=== PATIENT | male | born 1945 | race Caucasian/White ===

== ENCOUNTER → 2017-03-04 | Day surgery (SDC) | payer OTHER, BC ==
[2017-02-21 08:45] VITALS: Ht 172.7 cm; Wt 77.3 kg
[~2017-03-04] VITALS: Ht 172.7 cm; Wt 77.3 kg
[~2017-03-04] MED LIST: 500ML BSS 0.3ML EPI 1:1000PF IRRIG ONE; ACETAMINOPHEN 325 MG TAB PO PRN; AMLO-110 PO; AMVISC PLUS 0.8ML SYRINGE INT OCU ONE; ASPI81TA28 PO; ASTIN/15 NAE; ATOR-24 PO; ATROPINE SULFATE 0.1 MG/ML 5ML SYR IV PRN; ATROPINE SULFATE 1% OP SOLN 2 ML BTL ONE; AcetylCHOLine CHL OP SOL 1:100 2 ML BTL ONE; BRIMONIDINE TART 0.2% OP SOLN PER DROP CHARGE ONE; BSS FLUSH ONE; CLOP1TAB15 PO; EpHEDrine SULFATE INJ 50 MG/ML AMP IV PRN; EpINEphrine INJ 1MG/ML AMP 1 MG/ML AMP ONE; FAMO20TA11 PO; FLUT50SP45 NEB; HEALON 10MG/ML 0.85 ML SYR INSTIL ONE; LACTATED RINGER'S 1000ML 500 ML IV SCH; LIDOCAINE 4% OP SOLN DROP CHARGE ONE; LIDOCAINE 4% OP SOLN DROP CHARGE OPR SCH; LIDOCAINE HCL 1% MPF 2 ML VIAL ONE; LISI20TA3 PO; METO50TA7 PO; MIDAZOLAM HCL 1 MG/ML 2ML VIAL ONE; MOXIFLOXACIN OPH SOLN PER DROP CHARGE ONE; POVIDONE-IODINE OP SOLN 30 ML BTL ONE; PROPARACAINE 0.5% OP SOLN PER DROP CHARGE OPR SCH; SODI0.9S OPR; TETRACAINE HCL (OPHTH) 60 DROPS/4 ML BTL OP ONE; TOBRAMYCIN/DEXAMETHASONE OPH OINT PER APPLN CHARGE ONE; [UNRECOGNIZED DRUG - OTHER] OPL
[2017-03-04] MEDS: PHENYLEPHRINE HCL 2.5% OP SOLN PER DROP CHARGE OPR SCH ×2 (08:30→08:40)
[2017-03-04] MEDS: TROPICAMIDE 1% OP SOLN PER DROP CHARGE OPR SCH ×2 (08:32→08:41)
[2017-03-04] MEDS: CYCLOPENTOLATE HCL 1% OP SOLN PER DROP CHARGE OPR SCH ×2 (08:33→08:42)
[2017-03-04] MEDS: KETOROLAC 0.5% OP SOLN PER DROP CHARGE OPR SCH ×2 (08:34→08:44)
[2017-03-04] MEDS: MOXIFLOXACIN OPH SOLN PER DROP CHARGE OPR SCH ×2 (08:35→08:48)
--- NOTE | 2017-03-04 08:48 | History & Physical Bridge - [place] ---
H&P Re-Evaluation Bridge Note: I have examined the patient, reviewed the History & Physical and in the interval since the performance of the History & Physical I have noted the following changes of clinical significance: No changes noted
--- NOTE | 2017-03-04 10:44 | [facility] Post Operative Brief Note ---
Immediate Operative Summary Operative Date Mar 04, 2017. Pre-Operative Diagnosis Right Eye Endothelial Corneal Dystrophy; Cataract Right Eye Post-Operative Diagnosis Same Procedure(s) Performed Right Eye Descements Stripping Automated Endothelial Keratoplasty, Right Cataract Phacoemulsification With Intraocular Lens Implant Surgeon Dr. Adams Pulmonary Disease Specialist Surgeon(s) None Estimated Blood Loss 0 Findings cataract and fuchs dystrophy right eye Fluids (cc crystalloids) see anesthesia record Specimens A. Corneal Donor Rim Sent for Routine Culture and Gram Stain Drains none Anesthesia local with sedation Complication(s) None Disposition Recovery Room / PACU
--- NOTE | 2017-03-04 10:47 | Discharge Instructions-SurgCtr ---
Discharge Instructions Date of Service Mar 04, 2017. Visit Reason for Visit: Right Eye Endothelial Corneal Dystrophy; Cataract Discharge Discharge Diagnosis / Problem: fuchs dystrophy and cataract right eye Discharge Goals Goal(s): Improve function Activity Recommendations Activity Limitations: per Instructions/Follow-up section Lifting Limitations: no more than 5 pounds Anesthesia . Post Anesthesia Instructions: If you have had General Anesthesia or IV Sedation: * Do not drive today. * Resume driving when surgeon permits. * Do not make important decisions or sign legal documents today. * Call surgeon for: 1. Temperature elevations greater than 101 degrees F. 2. Uncontrollable pain. 3. Excessive bleeding. 4. Persistent nausea and vomiting. 5. Medication intolerance (nausea, vomiting or rash). * For nausea and vomiting use only clear liquids such as: tea, soda, bouillon until nausea subsides, then gradually increase diet as tolerated. * If you have any concerns or questions, call your surgeon's office. If physician is unavailable and it is an emergency, call 911 or go to the nearest emergency room. . Instructions / Follow-Up Instructions / Follow-Up ACTIVITY RECOMMENDATIONS: * Bedrest- Eyes to the david MEDICATIONS: Resume previous medications unless instructed otherwise by your surgeon. Eye drops (today and tomorrow): Gatifloxacin - one drop in operative eye every 2 hours while awake Prednisolone 1% - one drop in operative eye every 2 hours while awake Ilevro - one drop operative eye 1 times daily SPECIAL CARE INSTRUCTIONS: * If any problems or concerns, please call Dr. Adams's office at . * Keep plastic shield taped over eye to sleep at night. * Keep plastic shield taped over eye except to administer eye drops. * Keep plastic shield on until office visit the following day. FOLLOW UP VISIT: Follow-up with Dr. Adams in the [place] office as scheduled. If not already scheduled, please call the office at . Diet Recommendations Home Diet: resume previous diet Procedures Procedures Performed: Right Eye Descements Stripping Automated Endothelial Keratoplasty, Right Cataract Phacoemulsification With Intraocular Lens Implant Pending Studies Studies pending at discharge: no Medical Emergencies . Who to Call and When: Medical Emergencies: If at any time you feel your situation is an emergency, please call 911 immediately. . Non-Emergent Contact Non-Emergency issues call your: Numerical Control Router Operator . . "Provider Documentation" section prepared by Renan Adams. .
[2017-03-04 10:48] VITALS: TEMP 36.6
--- NOTE | 2017-03-04 11:06 | OPERATIVE REPORT ---
DATE OF OPERATION: 03/04/2017 PREOPERATIVE DIAGNOSIS: Cataract and Fuchs dystrophy, right eye. POSTOPERATIVE DIAGNOSIS: Same. PROCEDURE PERFORMED: Phacoemulsification cataract extraction with intraocular lens placement and Descemet stripping automated endothelial keratoplasty, right eye. COMPLICATIONS: None. ESTIMATED BLOOD LOSS: None. ANESTHESIA: Local with sedation. DESCRIPTION OF PROCEDURE: After informed consent was obtained in the holding area, attention was first turned to the donor cornea. It was trephinated with an 8.25 mm Lorraine trephine blade by myself. It was then covered in Optisol and set aside. The patient was then brought back to the operating room where cardiac monitoring leads and oxygen by nasal cannula was administered by anesthesia. Gentle IV sedation was given, and the patient's right eye was prepped and draped in usual standard fashion. A wire lid speculum was placed in the right eye and the operating microscope swung into position. Using 0.12 forceps and an MVR blade, a paracentesis port was made at the 11 o'clock position of the patient's right eye. 1% nonpreserved lidocaine was injected into the anterior chamber. A 2.0 mm keratome blade was then used to make a shelved clear cornea incision at the 9 o'clock position of the patient's right eye. The anterior chamber was filled with Healon and a curvilinear capsulorrhexis was performed with the cystotome and Utrata forceps. BSS and hydrodissection cannula was then used to hydrodissect the lens nucleus away from the capsular bag. The phacoemulsification handpiece was then used in a stop and chop fashion to remove the lens nucleus. Irrigation aspiration handpiece was then used to remove the residual cortical material. The eye was then filled with Healon and the main incision enlarged to 4 mm and a Bausch [employer] Lomb MX60 20.0 Diopter intraocular lens was injected into the capsular bag. The previously used Lorraine trephine was then inked and used to sergio the surface of the cornea. A reversed Sinskey hook was then used to score and strip Descemet's membrane from within the marked area. Descemet stripper removed to strip Descemet's from the eye. Stromal nail making machine tender was then used to roughen the stromal bed in the periphery. Irrigation aspiration handpiece was then used to remove the viscoelastic material from the eye. The donor cornea was then placed endothelial side up on the host cornea, a drop of Healon was placed on it. It was then placed on the EndoSerter and retracted into the EndoSerter. The EndoSerter was then used to inject the graft into the anterior chamber. A single 10-0 nylon suture was then placed through the main incision. The graft was then unfolded underneath BSS and air and then a complete air fill of the eye was achieved. This was held for 15 minutes during which time the eye was covered in Amvisc. After 15 minutes, Amvisc was rinsed from the eye and the [employer] Lasik roller was used to milk the interface. The eye was then recoated with Amvisc and another 10 minutes elapsed. At the conclusion of the 10 minutes, a partial air fluid exchange was done leaving behind a 70% air fill of the right eye. It should be noted that prior to graft insertion, Miochol was injected into the eye to bring down the pupil. Atropine was then placed on the eye. ReSure sealant was then placed over the paracentesis and primary incision. The wire lid speculum was removed from the eye. Vigamox, brimonidine and TobraDex ointment were placed on the eye and the eye was shielded. The patient tolerated the procedure well and was taken to recovery area in stable condition. I attest to the content of the Intraoperative Record and any orders documented therein. Any exception s are noted below.
--- NOTE | 2017-03-04 11:44 | Anesthesiology Progress Note ---
Anesthesia Post Op Note Date & Time Mar 04, 2017 at 11:43 Vital Signs Pain Intensity: 0 Vital Signs Past 12 Hours Date Time Temp Pulse Resp B/P (MAP) Pulse Ox O2 Delivery O2 Flow Rate FiO2 03/04/17 11:25 58 18 114/77 (89) 94 Room Air 03/04/17 10:48 36.6 58 16 145/80 (101) 96 Room Air 03/04/17 07:58 36.5 61 16 125/75 (92) 96 Room Air Notes Mental Status: alert / awake / arousable, participated in evaluation Nausea / Vomiting: adequately controlled Pain: adequately controlled Airway Patency, RR, SpO2: stable & adequate BP & HR: stable & adequate Hydration State: stable & adequate Anesthetic Complications: no major complications apparent
[2017-03-04 11:45] VITALS: BP 133/76; PULSE 55; O2SAT 94
== END | disposition home or self-care (01) ==
LOC: X.SURG 07:47
PROVIDERS: ATTEND Ophthalmology
DX: H25.11 Age-related nuclear cataract, right eye (principal); H18.51 Endothelial corneal dystrophy; J45.909 Unspecified asthma, uncomplicated; Z87.891 Personal history of nicotine dependence; Z79.82 Long term (current) use of aspirin; Z79.899 Other long term (current) drug therapy